=== PATIENT | male | born 1935 | race Two or more races ===

== ENCOUNTER 2018-11-14 19:23 | Emergency (ER) | payer OTHER ==
[~2018-11-14] VITALS: Ht 165.1 cm; Wt 72.6 kg
[2018-11-14 19:39] VITALS: BP 115/80
[2018-11-14] MEDS ORDERED: FOLIC ACID 1 MG TAB PO ONE (19:45)
[2018-11-14] MEDS ORDERED: FOLIC ACID 1 MG, MULTIPLE VITAMIN 10 ML, MAGNESIUM SULF SDV 50% 8 MEQ, THIAMINE INJ 100... INJ SCH ×5 (22:30)
[2018-11-15] MEDS ORDERED: MULTIPLE VITAMIN 10 ML, THIAMINE INJ 100 MG in SODIUM CHLORIDE 0.9% 1,000 ML INJ SCH (12:00)
== END 2018-11-15 01:04 | disposition home or self-care (01) ==
LOC: EDBD 19:23 → EDUNIT# 19:23 → ER 19:43
DX: S81.812A Laceration without foreign body, left lower leg, initial encounter (principal); F10.129 Alcohol abuse with intoxication, unspecified; Z85.038 Personal history of other malignant neoplasm of large intestine; Z88.0 Allergy status to penicillin; Y90.9 Presence of alcohol in blood, level not specified; X58.XXXA Exposure to other specified factors, initial encounter; Y93.89 Activity, other specified; Y92.89 Other specified places as the place of occurrence of the external cause; Y99.8 Other external cause status
CPT/HCPCS: 12002; 36415; 73590; 80320; 99284; J3411; J3475; J7030